=== PATIENT | female | born 1970 | race Caucasian/White ===

== ENCOUNTER 2020-11-14 21:33 | Emergency (ER) | payer OTHER ==
--- NOTE | 2020-11-14 21:42 | ED Physician Documentation ---
PD HPI BACK PAIN - Stated complaint Stated Complaint: LOWER BACK PX - Chief complaint Chief Complaint: Back Pain - History obtained from History obtained from: Patient - History of Present Illness Timing - onset: Last night, Chronic Timing - details: Waxing and waning Pain level max: 10 Pain level now: 10 Location: Mid, Lower Quality: Pain Associated symptoms: No: Fever, Weakness, Numbness, Incontinent of urine, Unable to urinate, Incontinent of stool Improves with: Rest Worsened by: Movement, Palpation Similar symptoms before: Diagnosis (chronic back pain) Recently seen: Not recently seen - Additional information Additional information: patient c/o neck and low back pain. her description is that of chronic back pain for which she is written regular prescriptions (percocet, gabapentin) and for which she underwent fusion last year (lumbar). She says last night she was walking in the dark and tripped, falling forward and her neck and low back pain have become significantly worse since this fall. Denies head injury, denies LOC. She says she took aleve and her percocet earlier today without adequate relief. Was driven to ED by her spouse. Review of Systems : denies: Unable to Void, Incontinent Musculoskeletal: reports: Neck pain, Back pain. denies: Joint pain Neurologic: denies: Generalized weakness, Focal weakness, Numbness, Headache, Head injury, LOC PD PAST MEDICAL HISTORY - Past Medical History Past Medical History: Yes Musculoskeletal: Chronic back pain - Past Surgical History Past Surgical History: Yes Ortho: Knee replacement, Spine surgery - Present Medications Home Medications: Ambulatory Orders Medication Instructions Recorded Confirmed Bupropion HCl [Wellbutrin Xl] 300 mg PO DAILY 11/14/20 11/14/20 Estradiol [Estrace] 1 tab PO DAILY 11/14/20 11/14/20 Methylphenidate [Ritalin] 5 mg PO TID 11/14/20 11/14/20 Pregabalin [Lyrica] 75 mg PO BID 11/14/20 11/14/20 Tizanidine HCl 2 mg PO DAILY 11/14/20 11/14/20 Trazodone HCl 150 mg PO QPM 11/14/20 11/14/20 diazePAM [Valium] 5 mg PO TID PRN #10 tablet 11/14/20 oxyCODONE [Roxicodone] 5 mg PO Q6H PRN #10 tablet 11/14/20 - Allergies Allergies/Adverse Reactions: Allergies Allergy/AdvReac Type Severity Reaction Status Date / Time No Known Drug Allergies Allergy Verified 11/14/20 21:44 PD ED PE NORMAL - Vitals Vital signs reviewed: Yes - General General: Alert and oriented X 3, Well developed/nourished, Other (appears uncomfortable at times during H+P) - Back Back: No CVA TTP, Other (TTP lower back (lumbar) midline and bilateral paralumbar. no cervical vertebral tenderness no paracervical tenderness to palpation) - Neuro Neuro: No motor deficit, No sensory deficit, Other (2+/4 bilateral patellar DTR. 5/5 bilateral plantarflexion) Results - Vitals Vitals: Vital Signs - 24 hr 11/14/20 11/14/20 11/14/20 21:35 22:10 22:46 Temperature 36.0 C L Heart Rate 90 78 Respiratory 16 17 16 Rate Blood Pressure 166/79 H 130/83 H O2 Saturation 96 98 11/15/20 00:03 Temperature Heart Rate 72 Respiratory 16 Rate Blood Pressure 148/80 H O2 Saturation 96 Oxygen O2 Source Room air - Rads (name of study) lumbar xrays Radiology: Prelim report reviewed, See rad report PD MEDICAL DECISION MAKING - ED course Complexity details: reviewed results, re-evaluated patient, considered differential, d/w patient ED course: c/o predominantly low back pain though also notes neck pain, chronic but has been significantly worse since trip and fall last night. There are no elements of H+P to suggest acute emergent process such as cord impingement (such as cauda equina). Plain films of lumbar spine are performed due to the notable TTP of the lumbar spine, and these do not suggest emergent process (such as fracture, displacement of hardware). she is given 1mg IM dilaudid and 10mg PO flexeril and on reevaluation, she reports adequate relief. she is to follow up with her orthopedic/spine doctor, return to ED if worse. Patient says the soonest appointment she could arrange isn't until next month. She currently takes percocet on a regularly prescribed basis but she says the current dosing has not controlled her acute pain, and that if she increases the dose she will run out early; I thus provided an rx for oxycodone 5mg, ten tablets to augment her current regimen for the short term. Also provided rx for valium to be used as a muscle relaxant in place of her tinazidine. In reviewing patient's ROSALIND, there do not appear to be any concerns regarding receiving prescriptions for controlled substances outside of her usual prescribing providers. I am prescribing a short course of short-acting opioid pain medication for this patient. 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 I have discussed that the opioids are for short term therapy only, and will not be refilled from the ED. Departure - Departure Disposition: Home, Self Care Clinical Impression: Back pain Qualifiers: Back pain location: low back pain Chronicity: chronic Back pain laterality: bilateral Sciatica presence: without sciatica Qualified Code(s): M54.5 - Low back pain Condition: Good Instructions: ED Neck Back Pain General Prescriptions: oxyCODONE [Roxicodone] 5 mg PO Q6H PRN #10 tablet PRN Reason: Pain diazePAM [Valium] 5 mg PO TID PRN #10 tablet PRN Reason: Spasms Comments: Follow up with your primary care provider, next available appointment. Prescriptions for oxycodone and diazepam (Valium) have been transmitted to [facility] in [place]. I am prescribing a short course of narcotic pain medication for you. These are potentially dangerous and addictive medications that should be used carefully. These medications may constipate you. Take an bojb-ufw-zgzxdaf stool softener (docusate) twice daily with plenty of water while taking these medications. If you go 24 hours without a bowel movement, take psrw-zug-tziaqml miralax, per package instructions. Do not drink or drive while taking these medications. If you received narcotic or sedating medications while in the emergency department, do not drive for 24 hours. Store this medication in a safe, secure place and out of reach of children. It is a violation of federal law to give or sell this medication to another person or to use in a manner other than prescribed. The ED will not refill narcotic prescriptions, including prescriptions lost or stolen. To dispose of unwanted medications: 1. [facility] at [address] in [place] has a medication drop box. They accept prescription medications (in pill form) Tuesday through Tuesday 9:00 a.m. to 5:00 p.m. 2. The [facility] [employer] accepts prescription medications (i n pill form only) for disposal year round. Call for more information. 3. Contact the [facility] for the next [facility] sponsored prescription drug collection event. , [phone], or [phone]; Forms: Activity restrictions Discharge Date/Time: 11/15/20 00:05
[2020-11-14] MEDS ORDERED: CYCLOBENZAPRINE 10 MG TABLET PO STA (22:02)
[2020-11-14] MEDS ORDERED: HYDROmorphone 1 MG/ML CARPUJECT IM STA (22:02)
[2020-11-15 00:09] VITALS: BP 148/80
--- NOTE | 2020-11-15 08:11 | XRAY Report ---
PROCEDURE: Lumbar Spine 2 View INDICATIONS: low back pain, injury last night TECHNIQUE: 3 views of the lumbar spine were acquired. COMPARISON: None. FINDINGS: Bones: 5 yfv-ycl-kxlykuo vertebrae are present. There is normal bony alignment. No vertebral body compression fractures. No suspicious bony lesions. The spacers are seen at L2-L3 and L3-L4. There is mild disc space narrowing seen at L5-S1. Facet art hropathy is seen, which is most prominent inferiorly. Soft tissues: Overlying bowel gas pattern is normal. No suspicious soft tissue calcifications. IMPRESSION: Negative for acute fracture. Postoperative and degenerative changes are seen. Note: No significant discrepancy from the preliminary report. Reviewed by: Darryn Awad MD on 11/15/2020 7:09 AM [place] Approved by: Darryn Awad MD on 11/15/2020 7:09 AM [place] Station ID: [id number]
== END 2020-11-15 00:05 | disposition home or self-care (01) ==
LOC: ED 21:33
DX: M54.5 Low back pain (principal); G89.29 Other chronic pain
CPT/HCPCS: 72100; 96372; 99283; A9270; J1170

== ENCOUNTER 2020-11-17 19:13 | Emergency (ER) | payer OTHER ==
[2020-11-17] MEDS ORDERED: HYDROmorphone 2 MG/ML VIAL IM STA (20:46)
[2020-11-17] MEDS ORDERED: CYCLOBENZAPRINE 10 MG TABLET PO STA (20:47)
--- NOTE | 2020-11-17 20:50 | ED Physician Documentation ---
History of Present Illness - Stated complaint Stated Complaint: LOW BACK PX - Chief complaint Chief Complaint: Back Pain - Additonal information Additional information: 50-year-old woman with past medical history of spinal fusion last year at L3/4/5 presents with low back pain status post fall on Tuesday. Patient was seen Tuesday and provided with oral pain medication but she says that it has not been controlling the pain adequately. Denies focal weakness or numbness in groin or extremities. no urinary/fecal incont or retention. 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 : None HEENT: None Psych: Depression Musculoskeletal: Chronic back pain Derm: None - Past Surgical History Past Surgical History: Yes General: Other Ortho: Knee replacement, Spine surgery - Present Medications Home Medications: Ambulatory Orders Medication Instructions Recorded Confirmed Bupropion HCl [Wellbutrin Xl] 300 mg PO DAILY 11/14/20 11/14/20 Estradiol [Estrace] 1 tab PO DAILY 11/14/20 11/14/20 Methylphenidate [Ritalin] 5 mg PO TID 11/14/20 11/14/20 Pregabalin [Lyrica] 75 mg PO BID 11/14/20 11/14/20 Tizanidine HCl 2 mg PO DAILY 11/14/20 11/14/20 Trazodone HCl 150 mg PO QPM 11/14/20 11/14/20 diazePAM [Valium] 5 mg PO TID PRN #10 tablet 11/14/20 oxyCODONE [Roxicodone] 5 mg PO Q6H PRN #10 tablet 11/14/20 Cyclobenzaprine [Flexeril] 10 mg PO TID PRN 6 Days #20 tablet 11/17/20 Oxycodone HCl/Acetaminophen 1 each PO Q4H PRN #10 tablet 11/17/20 [Percocet 10-325 mg Tablet] - Allergies Allergies/Adverse Reactions: Allergies Allergy/AdvReac Type Severity Reaction Status Date / Time No Known Drug Allergies Allergy Verified 11/17/20 19:18 - Social History Does the pt smoke?: No Smoking Status: Never smoker Does the pt drink ETOH?: No Does the pt have substance abuse?: No - Immunizations Immunizations are current?: No - POLST Patient has POLST: No PD ED PE NORMAL - Vitals Vital signs reviewed: Yes - General General: Alert and oriented X 3, No acute distress, Well developed/nourished - HEENT HEENT: Atraumatic, PERRL, EOMI - Back Back: Other (discomfort to palpation along lumbar BL back in muscle distribution) - Derm Derm: Normal color, Warm and dry - Extremities Extremities: Other (2+ BL dp / pt pulses. normal senstaion and strenght. ambulatory without difficulty) - Neuro Neuro: No motor deficit, No sensory deficit Results - Vitals Vitals: Vital Signs - 24 hr 11/17/20 11/17/20 19:18 21:06 Temperature 36.6 C Heart Rate 87 76 Respiratory 16 12 Rate Blood Pressure 144/99 H 146/96 H O2 Saturation 98 98 Oxygen O2 Source Room air PD MEDICAL DECISION MAKING - ED course ED course: 50-year-old woman presents with acute on chronic lower back pain, improved with muscle relaxer and Dilaudid tried in the past. Will provide today. Patient will follow up with orthopedics. Strict return precautions given. Departure - Departure Disposition: 01 Home, Self Care Clinical Impression: Chronic low back pain Condition: Good Instructions: ED Back Care Tips Prescriptions: Cyclobenzaprine [Flexeril] 10 mg PO TID PRN 6 Days #20 tablet PRN Reason: Spasms Oxycodone HCl/Acetaminophen [Percocet 10-325 mg Tablet] 1 each PO Q4H PRN #10 tablet PRN Reason: Pain Comments: You were seen in the emergency department for lower back pain after a fall on Tuesday. I sent prescriptions to your pharmacy electronically that you can slate picker at [facility]. Please return to the emergency department if you experience any new or worsening symptoms or have other concerns. Follow-up with your orthopedist for your appointment December 14. Forms: Activity restrictions Discharge Date/Time: 11/17/20 21:05
[2020-11-17 21:07] VITALS: BP 146/96
== END 2020-11-17 21:05 | disposition home or self-care (01) ==
LOC: ED 19:13
DX: M54.5 Low back pain (principal); G89.29 Other chronic pain
CPT/HCPCS: 96372; 99283; A9270; J1170

== ENCOUNTER 2021-01-02 09:58 | Emergency (ER) | payer OTHER ==
[2021-01-02] MEDS ORDERED: HYDROmorphone 1 MG/ML CARPUJECT IM STA (12:35)
--- NOTE | 2021-01-02 12:42 | ED Physician Documentation ---
History of Present Illness - Stated complaint Stated Complaint: back px - Chief complaint Chief Complaint: Back Pain - History obtained from History obtained from: Patient - Additonal information Additional information: 50-year-old female with a past medical history of lower back pain with sciatica, states a history of bulging disc, is on chronic narcotics and previously was being seen by pain management though her pain management physician retired, presents with an acute exacerbation of her chronic lower back pain radiating into her left leg. She denies any acute trauma, no fever chills, no bowel or bladder symptoms, no saddle anesthesia, no other lower extremity extremity numbness. She is taking Aleve at home and previously was on oxycodone, states up to 30 mg a day though has ran out. She called her primary care provider who was not in the office and this she is here requesting pain medication. She has been on tizanidine, steroids, Aleve, Flexeril, Lyrica, and oxycodone in the [facility] t. 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 : None HEENT: None Psych: Depression Musculoskeletal: Chronic back pain Derm: None - Past Surgical History Past Surgical History: Yes General: Other Ortho: Knee replacement, Spine surgery - Present Medications Home Medications: Ambulatory Orders Medication Instructions Recorded Confirmed Bupropion HCl [Wellbutrin Xl] 300 mg PO DAILY 11/14/20 11/14/20 Estradiol [Estrace] 1 tab PO DAILY 11/14/20 11/14/20 Methylphenidate [Ritalin] 5 mg PO TID 11/14/20 11/14/20 Pregabalin [Lyrica] 75 mg PO BID 11/14/20 11/14/20 Tizanidine HCl 2 mg PO DAILY 11/14/20 11/14/20 Trazodone HCl 150 mg PO QPM 11/14/20 11/14/20 diazePAM [Valium] 5 mg PO TID PRN #10 tablet 11/14/20 oxyCODONE [Roxicodone] 5 mg PO Q6H PRN #10 tablet 11/14/20 Cyclobenzaprine [Flexeril] 10 mg PO TID PRN 6 Days #20 tablet 11/17/20 Oxycodone HCl/Acetaminophen 1 each PO Q4H PRN #10 tablet 11/17/20 [Percocet 10-325 mg Tablet] oxyCODONE [Roxicodone] 5 mg PO Q4-6H #10 tablet 01/02/21 - Allergies Allergies/Adverse Reactions: Allergies Allergy/AdvReac Type Severity Reaction Status Date / Time No Known Drug Allergies Allergy Verified 01/02/21 10:08 - Social History Does the pt smoke?: No Smoking Status: Never smoker Does the pt drink ETOH?: No Does the pt have substance abuse?: No - Immunizations Immunizations are current?: No - POLST Patient has POLST: No PD ED PE NORMAL - Vitals Vital signs reviewed: Yes - General General: Alert and oriented X 3, No acute distress, Well developed/nourished - HEENT HEENT: Atraumatic, Pharynx benign - Neck Neck: Supple, no meningeal sign, No JVD - Cardiac Cardiac: RRR, No murmur - Respiratory Respiratory: No respiratory distress, Clear bilaterally - Abdomen Abdomen: Normal bowel sounds, Soft, Non tender, Non distended - Back Back: No CVA TTP, No spinal TTP, Other (Left lower lumbar paravertebral muscle tenderness to palpation, tenderness over the left sciatic) - Derm Derm: Normal color, Warm and dry, No rash - Extremities Extremities: No deformity, No tenderness to palpate, Normal ROM s pain, No edema, No calf tenderness / cord - Neuro Neuro: Alert and oriented X 3 Eye Opening: Spontaneous Motor: Obeys Commands Verbal: Oriented GCS Score: 15 - Psych Psych: Normal mood, Normal affect Results - Vitals Vitals: Vital Signs - 24 hr 01/02/21 01/02/21 10:05 12:29 Temperature 36.5 C 36.0 C L Heart Rate 99 82 Respiratory 16 20 Rate Blood Pressure 151/104 H 150/119 H O2 Saturation 100 94 Oxygen O2 Source Room air PD MEDICAL DECISION MAKING - ED course Complexity details: considered differential, d/w patient ED course: 50-year-old female with past medical history of lower back pain on chronic narcotics who presented with acute exacerbation of her chronic lower back pain. No trauma, no fever, no signs of cauda equina or other acute emergent issue. She had no acute physical exam findings to suggest the need for imaging at this time. Patient was given 1 mg of Dilaudid and discharged with 10 tablets of oxycodone and narcotic medication instructions. I strongly urged her to follow-up with her primary care provider as soon as possible as it is not appropriate for her to continue to utilize the ER for chronic pain management. Patient states understanding and plans to make an appointment with her primary care provider on Tuesday. I reviewed return precautions in detail with the patient including fever, chills, saddle anesthesia, bowel or bladder changes, lower extremity numbness or other new concerns. Departure - Departure Disposition: Home, Self Care Clinical Impression: Chronic low back pain Qualifiers: Back pain laterality: left Sciatica presence: with sciatica Sciatica laterality: sciatica of left side Qualified Code(s): M54.42 - Lumbago with sciatica, left side Condition: Good Instructions: ED Sciatica Prescriptions: oxyCODONE [Roxicodone] 5 mg PO Q4-6H #10 tablet Comments: You presented with acute on chronic low back pain radiating into your leg. As we discussed it is important to have your chronic back pain managed by your primary care provider or a pain specialist. I will give you a short-term prescription for pain medication to get you through the weekend and you need to call your primary doctor on Tuesday. Continue the Flexeril that is prescribed and continue Aleve. You may try ice or heat as is comfortable, stretches and there are number physical therapy exercises they can find online if you do not have access to a physical therapist. You have been given a narcotic pain medication while in the ER, you should not drive or operate heavy machinery, you should not drink alcohol or combine with other drugs. You have received a short-term prescription for a narcotic pain medication, narcotic pain medication is highly addictive and can result in dependence, you should not drive while on this medication, you should not combine with other respiratory suppressants or alcohol, and it is important to take only as prescribed. It is a violation of federal law to give a prescribed narcotic to another person to whom its not prescribed.
[2021-01-02 13:04] VITALS: BP 147/105
== END 2021-01-02 13:06 | disposition home or self-care (01) ==
LOC: ED 09:58
DX: M54.42 Lumbago with sciatica, left side (principal); G89.29 Other chronic pain
CPT/HCPCS: 96372; 99283; J1170

== ENCOUNTER 2021-09-15 14:45 | Emergency (ER) | payer OTHER ==
[2021-09-15 15:09] VITALS: BP 149/92
--- NOTE | 2021-09-15 16:21 | ED Physician Documentation ---
History of Present Illness - Stated complaint Stated Complaint: R FOOT - Chief complaint Chief Complaint: Trauma Ext - History obtained from History obtained from: Patient - History of Present Illness Pain level max: 6 Pain level now: 5 - Additonal information Additional information: Patient is a 51-year-old female who presents to the emergency department the right foot pain for the past 2 months. She states she kicked a wall 2 months ago and but the foot still hurts. Worse with walking and movement, better with rest. Upon further history, the patient states that this has happened before. She said there is not always an injury, but it involves the first MCP joint of the right foot. It becomes red and swollen and painful. No numbness or tingling. Has not had a diagnosis of gout before. 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 HEENT: None Psych: Depression Musculoskeletal: Chronic back pain Derm: None - Past Surgical History Past Surgical History: Yes General: Other Ortho: Knee replacement, Spine surgery - Present Medications Home Medications: Ambulatory Orders Medication Instructions Recorded Confirmed Bupropion HCl [Wellbutrin Xl] 300 mg PO DAILY 11/14/20 11/14/20 Estradiol [Estrace] 1 tab PO DAILY 11/14/20 11/14/20 Methylphenidate [Ritalin] 5 mg PO TID 11/14/20 11/14/20 Pregabalin [Lyrica] 75 mg PO BID 11/14/20 11/14/20 Tizanidine HCl 2 mg PO DAILY 11/14/20 11/14/20 Trazodone HCl 150 mg PO QPM 11/14/20 11/14/20 diazePAM [Valium] 5 mg PO TID PRN #10 tablet 11/14/20 oxyCODONE [Roxicodone] 5 mg PO Q6H PRN #10 tablet 11/14/20 Cyclobenzaprine [Flexeril] 10 mg PO TID PRN 6 Days #20 tablet 11/17/20 Oxycodone HCl/Acetaminophen 1 each PO Q4H PRN #10 tablet 11/17/20 [Percocet 10-325 mg Tablet] oxyCODONE [Roxicodone] 5 mg PO Q4-6H #10 tablet 01/02/21 Meloxicam [Mobic] 7.5 mg PO BID PRN #20 tablet 09/15/21 - Allergies Allergies/Adverse Reactions: Allergies Allergy/AdvReac Type Severity Reaction Status Date / Time No Known Drug Allergies Allergy Verified 09/15/21 15:05 - Social History Does the pt smoke?: No Smoking Status: Never smoker Does the pt drink ETOH?: No Does the pt have substance abuse?: No - Immunizations Immunizations are current?: No - POLST Patient has POLST: No PD ED PE NORMAL - Vitals Vital signs reviewed: Yes - General General: Alert and oriented X 3, No acute distress - Derm Derm: Warm and dry - Extremities Extremities: Other (Right foot has tenderness a) - Neuro Neuro: Alert and oriented X 3 Results - Vitals Vitals: Vital Signs - 24 hr 09/15/21 15:05 Temperature 36.7 C Heart Rate 88 Respiratory 16 Rate Blood Pressure 149/92 H O2 Saturation 97 Oxygen O2 Source Room air - Rads (name of study) R foot xray Radiology: Final report received, EMP read contemporaneously, See rad report PD MEDICAL DECISION MAKING - ED course Complexity details: reviewed results, re-evaluated patient, considered differential, d/w patient ED course: Unclear ideology of the patient's symptoms, but appears consistent with gouty arthritis. We will trial the patient on colchicine. We will also place her on anti-inflammatory medications. Placed into a post operative shoe and given crutches. No acute findings on x-ray. No evidence of fracture. Patient counseled regarding signs and symptoms for which I believe an urgent reevaluation would be needed. Patient comfortable going home at this time. Departure - Departure Disposition: Home, Self Care Clinical Impression: Arthritis Gout Qualifiers: Gout site: foot Gout etiology: unspecified cause Chronicity: acute Laterality: right Qualified Code(s): M10.9 - Gout, unspecified Condition: Good Instructions: ED Arthritis Gout, ED Diet Gout Follow-Up: your,doctor in 1 week [Other] Prescriptions: Meloxicam [Mobic] 7.5 mg PO BID PRN #20 tablet PRN Reason: Pain Comments: Please follow-up with your doctor for further care. The postop shoe should help with the pain. The colchicine should help if this is gout. I do not see any acute fractures on your x-ray. You do have arthritis in that joint. Drink plenty of water. Return if you worsen Discharge Date/Time: 09/15/21 17:11
[2021-09-15] MEDS ORDERED: COLCHICINE 0.6 MG TABLET PO STA (16:41)
[2021-09-15] MEDS ORDERED: MELOXICAM 7.5 MG TABLET PO STA (16:41)
--- NOTE | 2021-09-15 17:08 | XRAY Report ---
PROCEDURE: Foot 3 View RT INDICATIONS: Trauma TECHNIQUE: 3 views of the foot were acquired. COMPARISON: None FINDINGS: Bones: No fractures or dislocations. No suspicious bony lesions. Degenerative changes of the first MTP joint are present. A plantar calcaneal spur is present. Soft tissues: No tibiotalar joint effusion. Achilles tendon appears normal. IMPRESSION: No acute osseous abnormality. Reviewed by: Maximus Alegria MD on 09/15/2021 5:07 PM PDT Approved by: Maximus Alegria MD on 09/15/2021 5:07 PM PDT Station ID: [id number]
== END 2021-09-15 17:11 | disposition home or self-care (01) ==
LOC: ED 14:45
DX: M19.071 Primary osteoarthritis, right ankle and foot (principal); M10.9 Gout, unspecified
CPT/HCPCS: 73630; 99283; A9270

== ENCOUNTER 2021-09-29 14:25 | Emergency (ER) | payer OTHER ==
[2021-09-29] MEDS ORDERED: oxyCODONE 5 MG TABLET PO STA (15:09)
[2021-09-29] MEDS ORDERED: predniSONE 20 MG TABLET PO STA (15:09)
--- NOTE | 2021-09-29 15:19 | ED Physician Documentation ---
PD HPI LOWER EXT INJURY - Stated complaint Stated Complaint: RT FT TOE PX - Chief complaint Chief Complaint: Ext Problem - History obtained from History obtained from: Patient - History of Present Illness PD HPI LOW EXT INJURY LOCATION: Right, Foot Pain level max: 7 Pain level now: 5 Improved by: Rest Worsened by: Moving, Palpating - Additional information Additional information: 51-year-old female presents to the emergency department with pain to the right f irst MTP joint. This been ongoing for the past several weeks. Was seen here and given colchicine and placed on anti-inflammatories. She states the pain has continued. The redness has decreased as has the swelling. Worse with walking. Better with rest. No fevers. No chills. No further injuries. 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 : None HEENT: None Psych: Depression Musculoskeletal: Chronic back pain Derm: None - Past Surgical History Past Surgical History: Yes General: Other Ortho: Knee replacement, Spine surgery - Present Medications Home Medications: Ambulatory Orders Medication Instructions Recorded Confirmed Bupropion HCl [Wellbutrin Xl] 300 mg PO DAILY 11/14/20 11/14/20 Estradiol [Estrace] 1 tab PO DAILY 11/14/20 11/14/20 Methylphenidate [Ritalin] 5 mg PO TID 11/14/20 11/14/20 Pregabalin [Lyrica] 75 mg PO BID 11/14/20 11/14/20 Tizanidine HCl 2 mg PO DAILY 11/14/20 11/14/20 Trazodone HCl 150 mg PO QPM 11/14/20 11/14/20 diazePAM [Valium] 5 mg PO TID PRN #10 tablet 11/14/20 oxyCODONE [Roxicodone] 5 mg PO Q6H PRN #10 tablet 11/14/20 Cyclobenzaprine [Flexeril] 10 mg PO TID PRN 6 Days #20 tablet 11/17/20 Oxycodone HCl/Acetaminophen 1 each PO Q4H PRN #10 tablet 11/17/20 [Percocet 10-325 mg Tablet] oxyCODONE [Roxicodone] 5 mg PO Q4-6H #10 tablet 01/02/21 Meloxicam [Mobic] 7.5 mg PO BID PRN #20 tablet 09/15/21 Indomethacin [Indomethacin ER] 75 mg PO DAILY #7 cap 09/29/21 Oxycodone HCl/Acetaminophen 1 - 2 each PO Q6H PRN #14 tablet 09/29/21 [Percocet 5-325 mg Tablet] predniSONE [Deltasone] 10 mg PO [id number] #42 tab 09/29/21 - Allergies Allergies/Adverse Reactions: Allergies Allergy/AdvReac Type Severity Reaction Status Date / Time gabapentin Allergy Unknown Verified 09/29/21 14:40 - Social History Does the pt smoke?: No Smoking Status: Never smoker Does the pt drink ETOH?: No Does the pt have substance abuse?: No - Immunizations Immunizations are current?: No - POLST Patient has POLST: No PD ED PE NORMAL - Vitals Vital signs reviewed: Yes - General General: Alert and oriented X 3, No acute distress - HEENT HEENT: Moist mucous membranes - Derm Derm: Warm and dry - Extremities Extremities: Other (Right foot - Normal external examination of the foot. Neurovascular intact. No redness or swelling. No pain with range of motion of the second through fifth toes. There is pain at the first MTP joint with range of motion of the great toe. ) - Neuro Neuro: Alert and oriented X 3 Results - Vitals Vitals: Vital Signs - 24 hr 09/29/21 09/29/21 14:37 16:34 Temperature 36.7 C 37.4 C Heart Rate 100 84 Respiratory 16 16 Rate Blood Pressure 149/86 H 149/99 H O2 Saturation 97 96 Oxygen O2 Source Room air - Labs Labs: Laboratory Tests 09/29/21 09/29/21 09/29/21 15:22 15:22 15:22 WBC 6.4 RBC 3.90 L Hgb 12.3 Hct 35.9 L MCV 92.1 MCH 31.5 H MCHC 34.3 RDW 11.8 L Plt Count 231 MPV 11.0 H Neut # (Auto) 3.7 Lymph # (Auto) 2.0 [place] # (Auto) 0.5 Eos # (Auto) 0.2 Baso # (Auto) 0.0 Absolute Nucleated RBC 0.00 Nucleated RBC % 0.0 ESR 18 Sodium 140 Potassium 3.8 Chloride 105 Carbon Dioxide 27 Anion Gap 8.0 BUN 22 H Creatinine 0.9 Estimated GFR (MDRD) 65 L Glucose 124 H Uric Acid 5.6 Calcium 9.4 Total Bilirubin 0.5 AST 19 ALT 17 Alkaline Phosphatase 45 C-Reactive Protein 1.2 H Total Protein 7.2 Albumin 4.0 Globulin 3.2 Albumin/Globulin Ratio 1.3 - Rads (name of study) Right foot x-ray Radiology: Final report received, EMP read contemporaneously, See rad report PD MEDICAL DECISION MAKING - ED course Complexity details: reviewed results, re-evaluated patient, considered differential (No septic joint. No fracture. No dislocation.), d/w patient ED course: No acute findings on x-ray or laboratory testing other than a mildly elevated CRP. We will trial on steroids and anti-inflammatories and pain medication for home. Recommend hard soled shoes. Recommend gently stretch in the area as this could be related to a ligamentous or tendon injury. Recommend that she follow- up with her orthopedist for further evaluation. Patient counseled regarding signs and symptoms for which I believe and urgent re-evaluation would be necessary. Patient with good understanding of and agreement to plan and is comfortable going home at this time This document was made in part using voice recognition software. While efforts are made to proofread this document, sound alike and grammatical errors may occur. Departure - Departure Disposition: 01 Home, Self Care Clinical Impression: Gout Qualifiers: Gout site: foot Gout etiology: unspecified cause Chronicity: acute Laterality: left Qualified Code(s): M10.9 - Gout, unspecified Condition: Good Instructions: ED Arthritis Gout, ED Diet Gout Follow-Up: your,doctor in 1 week [Other] Prescriptions: predniSONE [Deltasone] 10 mg PO [id number] #42 tab Indomethacin [Indomethacin ER] 75 mg PO DAILY #7 cap Oxycodone HCl/Acetaminophen [Percocet 5-325 mg Tablet] 1 - 2 each PO Q6H PRN #14 tablet PRN Reason: pain Comments: Your prescriptions were sent to [facility] in [place]. Please follow-up with your orthopedist for further care. We are treating you presumptively for gout, but there could be ligamentous issues or other issues in the foot that we cannot see on x-ray. I would gently stretch the area regularly as well. Wearing a hard soled shoe may help too. Return if you worsen. I am prescribing a short course of narcotic pain medication for you. These are potentially dangerous and addictive medications that should be used carefully. These medications may constipate you. Take an nzjm-czy-ugybbeg stool softener (docusate) twice daily with plenty of water while taking these medications. If you go 24 hours without a bowel movement, take [id number] miralax, per package instructions. Do not drink or drive while taking these medications. If you received narcotic or sedating medications while in the emergency department, do not drive for 24 hours. Store this medication in a safe, secure place and out of reach of children. It is a violation of federal law to give or sell this medication to another person or to use in a manner other than prescribed. The ED will not refill narcotic prescriptions, including prescriptions lost or stolen. To dispose of unwanted medications: 1. [facility] at [address] in [place] has a medication drop box. They accept prescription medications (in pill form) Tuesday through Tuesday 9:00 a.m. to 5:00 p.m. 2. The [facility] Police Department accepts prescription medications (in pill form only) for disposal year round. Call for more information. 3. Contact the [facility] for the next [facility] sponsored prescription samantha g collection event. , [phone], or [phone]; Discharge Date/Time: 09/29/21 16:38
[2021-09-29 15:38] LABS: BASOPHILS % (AUTO) 0.6 %; EOSINOPHILS # (AUTO) 0.2 10^3/uL (0.0-0.7); EOSINOPHILS % (AUTO) 3.3 %; HCT - HEMATOCRIT 35.9 % (37.0-47.0); HGB - HEMOGLOBIN 12.3 g/dL (12.0-16.0); LYMPHOCYTES % (AUTO) 31.6 %; MEAN CORPUSCULAR HEMOGLOBIN 31.5 pg (27.0-31.0); MEAN CORPUSCULAR HGB CONC 34.3 g/dL (32.0-36.0); MEAN CORPUSCULAR VOLUME 92.1 fL (81.0-99.0); MONOCYTES # (AUTO) 0.5 10^3/uL (0.0-1.0); NEUTROPHILS # (AUTO) 3.7 10^3/uL (1.5-6.6); NEUTROPHILS % (AUTO) 57.3 %; PLT - PLATELET COUNT 231 10^3/uL (130-450); RED CELL DISTRIBUTION WIDTH 11.8 % (12.0-15.0); WHITE BLOOD COUNT 6.4 x10^3/uL (4.8-10.8)
[2021-09-29 15:47] LABS: ALBUMIN/GLOBULIN RATIO 1.3 (1.0-2.2); BILIRUBIN,TOTAL 0.5 mg/dL (0.2-1.0); CALCIUM 9.4 mg/dL (8.5-10.3); CREATININE 0.9 mg/dL (0.4-1.0); CRP - C-REACTIVE PROTEIN 1.2 mg/dL (0-1.0); POTASSIUM 3.8 mmol/L (3.5-5.0); TOTAL PROTEIN 7.2 g/dL (6.7-8.2); URIC ACID 5.6 mg/dL (2.6-7.2)
--- NOTE | 2021-09-29 15:51 | XRAY Report ---
PROCEDURE: Foot 3 View RT INDICATIONS: R 1 st MTP joint pain TECHNIQUE: 3 views of the foot were acquired. COMPARISON: None FINDINGS: Bones: No fractures or dislocations. No suspicious bony lesions. First MTP degenerative narrowing is present. Soft tissues: No tibiotalar joint effusion. Achilles tendon appears normal. IMPRESSION: No visualized acute fracture or dislocation. However, occult injury cannot be excluded. Recommend gilma rt interval imaging follow-up in 7-10 days as clinically indicated for additional evaluation. Reviewed by: Sangita Terry MD on 09/29/2021 3:50 PM PDT Approved by: Sangita Terry MD on 09/29/2021 3:50 PM PDT Station ID: [id number]
[2021-09-29 16:34] VITALS: BP 149/99
== END 2021-09-29 16:38 | disposition home or self-care (01) ==
LOC: ED 14:25
DX: M10.9 Gout, unspecified (principal)
CPT/HCPCS: 36415; 73630; 80053; 84550; 85025; 85651; 86140; 99283; A9270; J7512

== ENCOUNTER 2021-11-29 14:51 | Emergency (ER) | payer OTHER ==
[2021-11-29] MEDS ORDERED: KETOROLAC 60 MG/2 ML VIAL IM STA (15:55)
[2021-11-29] MEDS ORDERED: HYDROmorphone 1 MG/ML CARPUJECT IM STA (15:55)
--- NOTE | 2021-11-29 15:58 | ED Physician Documentation ---
History of Present Illness - Stated complaint Stated Complaint: BACK PX - Chief complaint Chief Complaint: Back Pain - History obtained from History obtained from: Patient - Additonal information Additional information: The patient comes to the emergency department with chief complaint of flareup of her chronic back pain. She states it is across her lumbar area on both sides and down through both sciatic joints. She has a history of herniated disks and a surgical intervention that failed to bring relief. She states she is followed by chronic pain specialist and is scheduled to see them in 2 days. The patient states that she did not have any distinct injury that caused the pain to flareup. No loss of bowel or bladder function. She states she always has numbness and tingling in her feet when her back pain flares up. She denies any other complaints at this time. Review of Systems Ten Systems: 10 systems reviewed and negative Constitutional: reports: Reviewed and negative Eyes: reports: Reviewed and negative Ears: reports: Reviewed and negative Nose: reports: Reviewed and negative Throat: reports: Reviewed and negative Cardiac: reports: Reviewed and negative Respiratory: reports: Reviewed and negative GI: reports: Reviewed and negative : reports: Reviewed and negative Skin: reports: Reviewed and negative Musculoskeletal: reports: Back pain Neurologic: reports: Reviewed and negative Psychiatric: reports: Reviewed and negative Endocrine: reports: Reviewed and negative Immunocompromised: reports: Reviewed and negative PD PAST MEDICAL HISTORY - Past Medical History Cardiovascular: None Respiratory: Asthma Neuro: None Endocrine/Autoimmune: None GI: None 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 HEENT: None Psych: Depression Musculoskeletal: Chronic back pain Derm: None - Past Surgical History Past Surgical History: Yes General: Other Ortho: Knee replacement, Spine surgery - Present Medications Home Medications: Ambulatory Orders Medication Instructions Recorded Confirmed Bupropion HCl [Wellbutrin Xl] 300 mg PO DAILY 11/14/20 11/14/20 Estradiol [Estrace] 1 tab PO DAILY 11/14/20 11/14/20 Methylphenidate [Ritalin] 5 mg PO TID 11/14/20 11/14/20 Pregabalin [Lyrica] 75 mg PO BID 11/14/20 11/14/20 Tizanidine HCl 2 mg PO DAILY 11/14/20 11/14/20 Trazodone HCl 150 mg PO QPM 11/14/20 11/14/20 diazePAM [Valium] 5 mg PO TID PRN #10 tablet 11/14/20 oxyCODONE [Roxicodone] 5 mg PO Q6H PRN #10 tablet 11/14/20 Cyclobenzaprine [Flexeril] 10 mg PO TID PRN 6 Days #20 tablet 11/17/20 Oxycodone HCl/Acetaminophen 1 each PO Q4H PRN #10 tablet 11/17/20 [Percocet 10-325 mg Tablet] oxyCODONE [Roxicodone] 5 mg PO Q4-6H #10 tablet 01/02/21 Meloxicam [Mobic] 7.5 mg PO BID PRN #20 tablet 09/15/21 Indomethacin [Indomethacin ER] 75 mg PO DAILY #7 cap 09/29/21 Oxycodone HCl/Acetaminophen 1 - 2 each PO Q6H PRN #14 tablet 09/29/21 [Percocet 5-325 mg Tablet] predniSONE [Deltasone] 10 mg PO [id number] #42 tab 09/29/21 Cyclobenzaprine [Flexeril] 10 mg PO TID PRN #20 tablet 11/02/21 Lidocaine Patch 5% [Lidoderm Patch] 1 patch TOP BID PRN #10 patch 11/02/21 methylPREDNISolone [Medrol Dose 1 each PO .PACKAGEINSTRUCTIONS 6 11/02/21 Pack] Days #1 each Oxycodone HCl/Acetaminophen 1 each PO Q4HR PRN #12 tablet 11/29/21 [Endocet 5-325 mg Tablet] predniSONE [Deltasone] 10 mg PO [id number] #42 tab 11/29/21 - Allergies Allergies/Adverse Reactions: Allergies Allergy/AdvReac Type Severity Reaction Status Date / Time acetaminophen [From Vicodin] Allergy Itching Verified 11/29/21 15:09 gabapentin Allergy Unknown Verified 11/29/21 15:09 hydrocodone [From Vicodin] Allergy Itching Verified 11/29/21 15:09 - Social History Does the pt smoke?: No Smoking Status: Never smoker Does the pt drink ETOH?: No Does the pt have substance abuse?: No - Immunizations Immunizations are current?: No - POLST Patient has POLST: No PD ED PE NORMAL - Vitals Vital signs reviewed: Yes - General General: Alert and oriented X 3, No acute distress, Well developed/nourished - HEENT HEENT: Atraumatic, PERRL, EOMI, Moist mucous membranes - Neck Neck: Supple, no meningeal sign - Respiratory Respiratory: No respiratory distress - Back Back: No spinal TTP, Other (Tenderness palpation bilateral lumbar paraspinal musculature. 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 She was given prescriptions for symptomatic relief for the next couple of days until she sees her pain specialist. We have discussed home management of the symptoms as well as the usual indications for return. Departure - Departure Disposition: 01 Home, Self Care Clinical Impression: Back pain Qualifiers: Back pain location: low back pain Chronicity: acute Back pain laterality: bilateral Sciatica presence: with sciatica Sciatica laterality: bilateral sciatica Qualified Code(s): M54.42 - Lumbago with sciatica, left side; M54.41 - Lumbago with sciatica, right side Condition: Stable Instructions: ED Neck Back Pain General Prescriptions: Oxycodone HCl/Acetaminophen [Endocet 5-325 mg Tablet] 1 each PO Q4HR PRN #12 tablet PRN Reason: Pain predniSONE [Deltasone] 10 mg PO [id number] #42 tab Comments: Your prescriptions have been electronically transmitted to [facility] pharmacy in [place]. You have been given sedating medication today, so please do not drive for the next 8 hours.
[2021-11-29 16:20] VITALS: BP 130/76
== END 2021-11-29 16:19 | disposition home or self-care (01) ==
LOC: ED 14:51
DX: M54.42 Lumbago with sciatica, left side (principal); M54.41 Lumbago with sciatica, right side
CPT/HCPCS: 96372; 99283; J1170

== ENCOUNTER 2021-12-04 14:52 | Emergency (ER) | payer OTHER ==
[2021-12-04] MEDS ORDERED: KETOROLAC 60 MG/2 ML VIAL IM STA (15:15)
[2021-12-04] MEDS ORDERED: HYDROmorphone 1 MG/ML CARPUJECT IM STA (15:15)
--- NOTE | 2021-12-04 15:17 | ED Physician Documentation ---
PD HPI BACK PAIN - Stated complaint Stated Complaint: BACK PX - Chief complaint Chief Complaint: Back Pain - History obtained from History obtained from: Patient - Additional information Additional information: 51-year-old woman seen for an exacerbation of chronic back pain. She is had 2 surgeries in the past and recently established with pain management but they will not prescribe until results of UDS testing are done till the second visit which will be on December 22. She complains of chronic low back pain radiating up and down both legs without weakness, numbness, tingling, saddle anesthesia. 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 HEENT: None Psych: Depression Musculoskeletal: Chronic back pain Derm: None - Past Surgical History Past Surgical History: Yes General: Other Ortho: Knee replacement, Spine surgery - Present Medications Home Medications: Ambulatory Orders Medication Instructions Recorded Confirmed Bupropion HCl [Wellbutrin Xl] 300 mg PO DAILY 11/14/20 11/14/20 Estradiol [Estrace] 1 tab PO DAILY 11/14/20 11/14/20 Methylphenidate [Ritalin] 5 mg PO TID 11/14/20 11/14/20 Pregabalin [Lyrica] 75 mg PO BID 11/14/20 11/14/20 Tizanidine HCl 2 mg PO DAILY 11/14/20 11/14/20 Trazodone HCl 150 mg PO QPM 11/14/20 11/14/20 diazePAM [Valium] 5 mg PO TID PRN #10 tablet 11/14/20 oxyCODONE [Roxicodone] 5 mg PO Q6H PRN #10 tablet 11/14/20 Cyclobenzaprine [Flexeril] 10 mg PO TID PRN 6 Days #20 tablet 11/17/20 Oxycodone HCl/Acetaminophen 1 each PO Q4H PRN #10 tablet 11/17/20 [Percocet 10-325 mg Tablet] oxyCODONE [Roxicodone] 5 mg PO Q4-6H #10 tablet 01/02/21 Meloxicam [Mobic] 7.5 mg PO BID PRN #20 tablet 09/15/21 Indomethacin [Indomethacin ER] 75 mg PO DAILY #7 cap 09/29/21 Oxycodone HCl/Acetaminophen 1 - 2 each PO Q6H PRN #14 tablet 09/29/21 [Percocet 5-325 mg Tablet] predniSONE [Deltasone] 10 mg PO [id number] #42 tab 09/29/21 Cyclobenzaprine [Flexeril] 10 mg PO TID PRN #20 tablet 11/02/21 Lidocaine Patch 5% [Lidoderm Patch] 1 patch TOP BID PRN #10 patch 11/02/21 methylPREDNISolone [Medrol Dose 1 each PO .PACKAGEINSTRUCTIONS 6 11/02/21 Pack] Days #1 each Lidocaine Patch 5% [Lidoderm Patch] 1 each TOP DAILY PRN #10 patch 11/29/21 Oxycodone HCl/Acetaminophen 1 each PO Q4HR PRN #12 tablet 11/29/21 [Endocet 5-325 mg Tablet] predniSONE [Deltasone] 10 mg PO [id number] #42 tab 11/29/21 Oxycodone HCl/Acetaminophen 1 - 2 each PO Q6H PRN #25 tablet 12/04/21 [Percocet 5-325 mg Tablet] - Allergies Allergies/Adverse Reactions: Allergies Allergy/AdvReac Type Severity Reaction Status Date / Time acetaminophen [From Vicodin] Allergy Itching Verified 12/04/21 14:55 gabapentin Allergy Unknown Verified 12/04/21 14:55 hydrocodone [From Vicodin] Allergy Itching Verified 12/04/21 14:55 - Social History Does the pt smoke?: No Smoking Status: Never smoker Does the pt drink ETOH?: No Does the pt have substance abuse?: No - Immunizations Immunizations are current?: No - POLST Patient has POLST: No PD ED PE NORMAL - Vitals Vital signs reviewed: Yes - General General: Alert and oriented X 3, No acute distress - Abdomen Abdomen: Normal bowel sounds, Soft, Non tender - Back Back: No CVA TTP, No spinal TTP - Derm Derm: Normal color, Warm and dry - Extremities Extremities: No edema, No calf tenderness / cord - Neuro Neuro: Alert and oriented X 3, Normal speech Results - Vitals Vitals: Vital Signs - 24 hr 12/04/21 14:55 Temperature 36.5 C Heart Rate 98 Respiratory 16 Rate Blood Pressure 160/90 H O2 Saturation 99 Oxygen O2 Source Room air PD MEDICAL DECISION MAKING - ED course ED course: 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 She was in pain management when she moved from the [facility], and a Dr. Teixeira was prescribing for her there. She is established here but current primary care will not prescribe for her. Departure - Departure Disposition: Home, Self Care Clinical Impression: Acute exacerbation of chronic low back pain Condition: Good Record reviewed to determine appropriate education?: Yes Instructions: ED Neck Back Pain General Prescriptions: Oxycodone HCl/Acetaminophen [Percocet 5-325 mg Tablet] 1 - 2 each PO Q6H PRN #25 tablet PRN Reason: pain Comments: I sent your prescription electronically to [facility] in [place]. The policy of this emergency department is to not give more than 3 prescriptions for narcotics or other controlled substances in any 1 year. You have already surpassed this benchmark and we cannot prescribe narcotics for you. I encourage you to follow up with your primary care physician or to establish care with a primary care physician for ongoing pain management. You are always welcome to seek emergency care here for this or new issues but there will likely be limitations in the prescription of narcotic pain medication. I am prescribing a short course of narcotic pain medication for you. These are potentially dangerous and addictive medications that should be used carefully. These medications may constipate you. Take an pevr-lul-oyyviyx stool softener (docusate) twice daily with plenty of water while taking these medications. If you go 24 hours without a bowel movement, take [id number]-[id number] miralax, per package instructions. Do not drink or drive while taking these medications. If you received narcotic or sedating medications while in the emergency department, do not drive for 24 hours. Store this medication in a safe, secure place and out of reach of children. It is a violation of federal law to give or sell this medication to another person or to use in a manner other than prescribed. The ED will not refill narcotic prescriptions, including prescriptions lost or stolen. To dispose of unwanted medications: 1. [facility] at [address] [facility] in [place] has a medication drop box. They accept prescription medications (in pill form) Tuesday through Tuesday 9:00 a.m. to 5:00 p.m. 2. The [facility] Police Department accepts prescription medications (in pill form only) for disposal year round. Call for more information. 3. Contact the [facility] for the next [facility] sponsored prescription drug collection event. , [phone], or [phone]; Note that many narcotic pain relievers also contain Tylenol/acetaminophen. Please ensure that your total dose of acetaminophen from all sources does not exceed 3 g (3000 mg) per day.
[2021-12-04 15:51] VITALS: BP 135/78
== END 2021-12-04 15:51 | disposition home or self-care (01) ==
LOC: ED 14:52
DX: M54.50 Low back pain, unspecified (principal); G89.29 Other chronic pain
CPT/HCPCS: 96372; 99283; J1170

== ENCOUNTER 2022-04-06 09:09 | Outpatient (CLI) | payer OTHER ==
[2022-04-06 11:47] LABS: BASOPHILS # (AUTO) 0.1 10^3/uL (0.0-0.1); BASOPHILS % (AUTO) 0.7 %; EOSINOPHILS # (AUTO) 0.2 10^3/uL (0.0-0.7); EOSINOPHILS % (AUTO) 1.8 %; HCT - HEMATOCRIT 38.2 % (37.0-47.0); HGB - HEMOGLOBIN 12.4 g/dL (12.0-16.0); LYMPHOCYTES # (AUTO) 3.6 10^3/uL (1.5-3.5); LYMPHOCYTES % (AUTO) 34.6 %; MEAN CORPUSCULAR HEMOGLOBIN 31.3 pg (27.0-31.0); MEAN CORPUSCULAR HGB CONC 32.5 g/dL (32.0-36.0); MEAN CORPUSCULAR VOLUME 96.5 fL (81.0-99.0); MEAN PLATELET VOLUME 11.2 fL (7.9-10.8); MONOCYTES # (AUTO) 0.7 10^3/uL (0.0-1.0); MONOCYTES % (AUTO) 6.3 %; NEUTROPHILS # (AUTO) 5.8 10^3/uL (1.5-6.6); NEUTROPHILS % (AUTO) 56.4 %; PLT - PLATELET COUNT 310 10^3/uL (130-450); RED BLOOD COUNT 3.96 10^6/uL (4.20-5.40); RED CELL DISTRIBUTION WIDTH 11.7 % (12.0-15.0); WHITE BLOOD COUNT 10.3 x10^3/uL (4.8-10.8)
[2022-04-06 12:17] LABS: ALBUMIN 4.1 g/dL (3.2-5.5); ALBUMIN/GLOBULIN RATIO 1.2 (1.0-2.2); ALKALINE PHOSPHATASE 39 IU/L (42-121); ALT ALANINE AMINOTRANSFERASE 19 IU/L (10-60); AST ASPARTATE AMINOTRANSFERASE 21 IU/L (10-42); BILIRUBIN,TOTAL 0.7 mg/dL (0.2-1.0); BUN - BLOOD UREA NITROGEN 29 mg/dL (6-20); CALCIUM 9.8 mg/dL (8.5-10.3); CARBON DIOXIDE - CO2 27 mmol/L (21-32); CHLORIDE 103 mmol/L (101-111); CHOL/HDL RATIO 3.3 (<4.4); CHOLESTEROL 225 mg/dL; CREATININE 0.9 mg/dL (0.4-1.0); GFR - MDRD 65 (>89); GLUCOSE 92 mg/dL (70-100); HDL CHOLESTEROL 69 mg/dL; LDL CHOLESTEROL,CALCULATED 103 mg/dL; LDL/HDL RATIO 1.5 (<4.4); POTASSIUM 3.7 mmol/L (3.5-5.0); SODIUM 139 mmol/L (135-145); TOTAL PROTEIN 7.6 g/dL (6.7-8.2); TRIGLYCERIDES 265 mg/dL; VLDL CHOLESTEROL 53 mg/dL
[2022-04-06 12:20] LABS: THYROID STIMULATING HORMONE 1.17 uIU/mL (0.34-5.60)
== END 2022-04-06 09:10 | disposition home or self-care (01) ==
LOC: LAB.N 09:09
PROVIDERS: ATTEND Physician Assistant
DX: Z51.81 Encounter for therapeutic drug level monitoring (principal); Z13.220 Encounter for screening for lipoid disorders
CPT/HCPCS: 36415; 80053; 80061; 83721; 84443; 85025

== ENCOUNTER 2022-04-28 14:10 | Outpatient (CLI) | payer OTHER, MEDICAID ==
[2022-04-28 17:55] LABS: BILIRUBIN,URINE NEGATIVE (NEGATIVE); GLUCOSE, URINE (UA) NEGATIVE (NEGATIVE); KETONES,URINE (UA) NEGATIVE (NEGATIVE); LEUKOCYTE ESTERASE, URINE TRACE (NEGATIVE); NITRITE,URINE NEGATIVE (NEGATIVE); OCCULT BLOOD,URINE TRACE-INTA (NEGATIVE); PROTEIN,URINE NEGATIVE (NEGATIVE); UROBILINOGEN,URINE 0.2 (NORMAL) E.U./dL (NORMAL)
[2022-04-28 17:59] LABS: CLARITY,URINE HAZY (CLEAR)
[2022-04-28 18:03] LABS: BACTERIA,URINE Many /HPF (None Seen); RBC,URINE 0-5 /HPF (0-5); SQUAMOUS EPITHELIAL CELL,UR FEW Squamous (<= Few); WBC,URINE >25 /HPF (0-5)
== END 2022-04-28 23:59 | disposition home or self-care (01) ==
LOC: LAB.WCP 14:10
PROVIDERS: ATTEND Physician Assistant
DX: R30.0 Dysuria (principal)
CPT/HCPCS: 81001; 87086; 87181